=== PATIENT | female | born 1925 | race Caucasian/White ===

== ENCOUNTER 2017-08-26 14:56 | Observation (INO) | payer OTHER ==
[~2017-08-26] VITALS: Ht 162.6 cm; Wt 53.8 kg
[~2017-08-26 14:56] MED LIST: AMLODIPINE BESY10 MG PO; ASCORBIC ACID100 MG PO; ASPIR 8181 M1 PO; ASPIRIN EC325 MG PO; DIGESTIVE EN1 TABLET PO; DOCUSATE SODIU100 MG PO; FLORASTOR250 MG PO; KELP150 MC1 PO; LEVAQUIN500 MG PO; LISINOPRIL20 MG PO; NORVASC5 MG PO; TRAMADOL HCL50 MG PO; TRIMO-SAN JE113.4 G1 VG; VAGIFEM10 MCG VG; VITAMIN D400 UNI1 PO
[2017-08-26 15:50] LABS: HEMATOCRIT 36.2 % (36.0-46.0); HEMOGLOBIN 12.5 G/DL (11.9-15.5); MCH 32.1 PG (29.0-34.0); MCHC 34.5 G/DL (30.0-36.0); MCV 92.8 FL (83-99); PLATELET COUNT 197 K/uL (156-360); RBC DIS.WIDTH-CV 13.3 % (11.8-14.6); RBC DIS.WIDTH-SD 45.5 % (39-53)
[2017-08-26 16:03] LABS: CHLORIDE 105 mEq/L (99-109); POTASSIUM 3.8 mEq/L (3.7-5.4); SODIUM 136 mEq/L (136-147)
[2017-08-26 16:05] LABS: GLUCOSE 164 mg/dL (70-99)
[2017-08-26 16:09] LABS: CREATININE 0.8 mg/dL (0.6-1.3); GFR ESTIMATE (CALCULATED) > 59 mL/min/; UREA NITROGEN (BUN) 22 mg/dL (9-23)
[2017-08-26 16:14] LABS: APPEARANCE SL.HAZY ((CLEAR)); BILIRUBIN NEGATIVE; BLOOD NEGATIVE; COLOR YELLOW ((YELLOW)); GLUCOSE (STRIP) NEGATIVE; KETONES 20; LEUKOCYTES NEGATIVE; NITRITE NEGATIVE; PROTEIN (STRIP) NEGATIVE; SPECIFIC GRAVITY 1.019 (1.000-1.030); UROBILINOGEN 0.2 MG/DL (0.2-1.0)
[2017-08-26 16:20] LABS: BACTERIA NONE SEEN /HPF; CALCIUM OXALATE CRYSTALS 2+ /HPF; EPITHELIAL CELLS RARE /HPF; HYALINE CASTS 0-5 /LPF; MUCUS 1+ /LPF; UCUL ADDED? NO; WHITE BLOOD CELLS 0-5 /HPF (0-5)
[2017-08-26] MEDS ORDERED: LISINOPRIL40 MG PO (19:14)
[2017-08-26] MEDS ORDERED: PROBIOTIC1 EAC1 PO (19:16)
[2017-08-26] MEDS ORDERED: BESIVANCE5 ML LEFT EYE (19:17)
[2017-08-26] MEDS ORDERED: DUREZOL 0.100 DROP/5 LEFT EYE (19:17)
[2017-08-26 20:58] VITALS: BP 176/85
[2017-08-26] MEDS ORDERED: DUREZOL 0.100 DROP/5 RIGHT EYE (23:35)
[2017-08-26] MEDS ORDERED: ILEVRO1.7 ML RIGHT EYE (23:35)
[2017-08-27 00:08] VITALS: BP 145/87
[2017-08-27 03:45] VITALS: BP 110/61
[2017-08-27 07:51] VITALS: BP 146/75
[2017-08-27 09:07] LABS: HEMATOCRIT 36.3 % (36.0-46.0); MCH 30.8 PG (29.0-34.0); MCHC 33.1 G/DL (30.0-36.0); MCV 93.3 FL (83-99); PLATELET COUNT 201 K/uL (156-360); RBC DIS.WIDTH-CV 13.3 % (11.8-14.6); RED BLOOD COUNT 3.89 M/uL (3.80-5.20); WHITE BLOOD COUNT 8.1 K/uL (4.1-10.2)
[2017-08-27 09:31] LABS: CHLORIDE 106 MEQ/L (99-109); CREATININE 0.7 MG/DL (0.6-1.3); GFR ESTIMATE (CALCULATED) > 59 mL/min/; POTASSIUM 3.9 MEQ/L (3.7-5.4); SODIUM 141 MEQ/L (136-147); UREA NITROGEN (BUN) 23 mg/dL (9-23)
[2017-08-27 09:33] LABS: GLUCOSE 91 mg/dL (70-99)
[2017-08-27 15:22] VITALS: BP 128/69
[2017-08-27 23:01] VITALS: BP 150/75
[2017-08-28 08:39] VITALS: BP 146/82
[2017-08-28] MEDS ORDERED: TYLENOL REGULA325 MG PO (10:52)
[2017-08-28] MEDS ORDERED: CELECOXIB200 MG PO (10:52)
[2017-08-28] MEDS ORDERED: POLYETHYLENE GL17 GM PO (10:53)
[2017-08-28 16:45] VITALS: BP 160/92
== END 2017-08-28 19:30 | disposition home or self-care (01) ==
LOC: EME 14:56 → EDOF 18:20 → 3EAST 18:20 → EDOF 18:20 → ENRESERV 18:22 → 3EAST 20:44
PROVIDERS: Emergency Medicine; Physician Assistant
DX: K52.9 Noninfective gastroenteritis and colitis, unspecified (principal); M48.56XA Collapsed vertebra, not elsewhere classified, lumbar region, initial encounter for fracture; K59.00 Constipation, unspecified; I10 Essential (primary) hypertension; F03.90 Unspecified dementia, unspecified severity, without behavioral disturbance, psychotic disturbance, mood disturbance, and anxiety; N81.4 Uterovaginal prolapse, unspecified; Z60.2 Problems related to living alone; R26.2 Difficulty in walking, not elsewhere classified; Z91.81 History of falling; Z87.440 Personal history of urinary (tract) infections; Z79.82 Long term (current) use of aspirin
CPT/HCPCS: 72131; 72192; 80048; 81003; 85027; 99281; 99285; G0378; G8978 GP CJ; G8979 GP CI; G8980 CJ; G8987 GO CJ; G8988 CI; G8989 CJ; J1650; J7040